=== PATIENT | female | born 1940 | race Caucasian/White ===

== ENCOUNTER 2017-06-18 11:01 | Inpatient (IN) ==
[2017-06-18] MEDS ORDERED: methylPREDNISolone SOD SUC 125 MG/2 ML VIAL IV STA (11:23)
[2017-06-18 11:30] LABS: Basophils # 0.1 10*3/uL (0.0-0.2); Basophils % 0.9 % (0.0-0.8); Eosinophils # 0.5 10*3/uL (0.0-0.87); Eosinophils % 9.1 % (0.00-10.9); Hematocrit 33.7 VOL% (35.7-47.0); Immature Granulocytes % 0.3 %; Immature Granulocytes Absolute 0.02 #; Lymphocytes # 1.4 10*3/uL (1.4-4.0); Lymphocytes % 23.2 % (21.3-54.2); Mean Corpuscular HGB Conc 32.6 GM/DL (32-36); Mean Corpuscular Hemoglobin 31 PG (27-34); Mean Corpuscular Volume 93.9 FL (87-102); Mean Platelet Volume 10.9 FL (9.6-12.0); Monocytes # 1.1 10*3/uL (0.11-0.8); Monocytes % 19.4 % (1.7-12.7); Neutrophils # 2.8 10*3/uL (1.4-7.4); Neutrophils % 47.1 % (38.7-73.9); Platelet Count 170 T/CUMM (130-400); Red Blood Count 3.59 MC/CUMM (3.8-5.5); Red Cell Distribution Width 13.3 % (9.3-17.3); White Blood Count 5.8 T/CUMM (4-12)
[2017-06-18] MEDS: ALBUTEROL 2.5 MG/3 ML NEB RESP TX SCH ×3 (11:35→11:54)
[2017-06-18 11:54] LABS: Alanine Aminotransferase 19 U/L (13-56); Albumin 3.2 G/DL (3.4-5.0); Alkaline Phosphatase 62 U/L (45-117); Aspartate Amino Transferase 16 U/L (0-37); Blood Urea Nitrogen 19 MG/DL (7-18); Calcium 9.5 MG/DL (8.5-10.1); Glucose 98 MG/DL (74-106); Osmolality,Calculated 280.4 MOS/KG (273-304); Potassium 3.8 MMOL/L (3.5-5.1); Sodium 140 MMOL/L (136-145); Total Protein 7.1 G/DL (6.4-8.3); Troponin I Only < 0.015 NG/ML (0.00-0.045)
[2017-06-18 12:42] LABS: Eosinophils 9 % (0-10); Hypochromasia 1+; Lymphocytes 29 % (20-55); Platelet Estimate Adequate; Segmented Neutrophils 47 % (50-85); Total Cells Counted 100
[2017-06-18] MEDS ORDERED: ONDANSETRON 4 MG/2 ML VIAL IV PRN (14:16)
[2017-06-18] MEDS ORDERED: MORPHINE 4 MG/1 ML VIAL IV PRN (14:16)
[2017-06-18] MEDS ORDERED: ACETAMINOPHEN 325 MG TABLET PO PRN (14:16)
[2017-06-18] MEDS ORDERED: ALBUTEROL 2.5 MG/3 ML NEB RESP TX PRN ×2 (14:22→14:31)
[2017-06-18] MEDS ORDERED: NITROGLYCERIN SL 0.4 MG TABLET SL PRN (14:31)
[2017-06-18] MEDS ORDERED: AMINOPHYLLINE 125 MG in SODIUM CHLORIDE 0.9% 100 ML IV ONE (15:21)
[2017-06-18] MEDS: LEVOFLOXACIN INJ 500 MG in PREMIX 1 EACH IV SCH (16:24)
[2017-06-18] MEDS: MONTELUKAST 10 MG TABLET PO SCH (16:28)
[2017-06-18] MEDS: ALBUTEROL/IPRATROPIUM 3 ML NEB RESP TX SCH (19:17)
[2017-06-18] MEDS: AMINOPHYLLINE 500 MG in SODIUM CHLORIDE 0.9% 480 ML IV SCH (20:21)
[2017-06-18] MEDS: CARVEDILOL 12.5 MG TABLET PO SCH (20:57)
[2017-06-18] MEDS: APIXABAN 5 MG TABLET PO SCH (20:57)
[2017-06-18] MEDS: ASCORBIC ACID 500 MG TABLET PO SCH (20:57)
[2017-06-19] MEDS: ALBUTEROL/IPRATROPIUM 3 ML NEB RESP TX SCH ×4 (00:19→20:39)
[2017-06-19] MEDS: methylPREDNISolone SOD SUC 40 MG/1 ML VIAL IV SCH ×3 (00:38→23:41)
[2017-06-19 06:52] LABS: Hematocrit 36.2 VOL% (35.7-47.0); Immature Granulocytes % 0.7 %; Immature Granulocytes Absolute 0.03 #; Lymphocytes # 0.7 10*3/uL (1.4-4.0); Lymphocytes % 16.7 % (21.3-54.2); Mean Corpuscular HGB Conc 33.1 GM/DL (32-36); Mean Corpuscular Hemoglobin 31 PG (27-34); Mean Corpuscular Volume 92.3 FL (87-102); Mean Platelet Volume 10.7 FL (9.6-12.0); Monocytes # 0.1 10*3/uL (0.11-0.8); Monocytes % 3.1 % (1.7-12.7); Neutrophils # 3.4 10*3/uL (1.4-7.4); Neutrophils % 79.5 % (38.7-73.9); Platelet Count 220 T/CUMM (130-400); Red Blood Count 3.92 MC/CUMM (3.8-5.5); Red Cell Distribution Width 13.2 % (9.3-17.3); White Blood Count 4.3 T/CUMM (4-12)
[2017-06-19 07:20] LABS: Alanine Aminotransferase 19 U/L (13-56); Albumin 3.3 G/DL (3.4-5.0); Alkaline Phosphatase 73 U/L (45-117); Aspartate Amino Transferase 13 U/L (0-37); Bilirubin,Total < 0.39 MG/DL (0.2-1.0); Blood Urea Nitrogen 25 MG/DL (7-18); Calcium 9.3 MG/DL (8.5-10.1); Cholesterol 232 MG/DL (50-200); Glucose 145 MG/DL (74-106); HDL Cholesterol 52 MG/DL (40-60); Osmolality,Calculated 285.4 MOS/KG (273-304); Potassium 3.8 MMOL/L (3.5-5.1); Risk Ratio 4.46; Sodium 140 MMOL/L (136-145); Thyroid Stimulating Hormone 0.412 uIU/ml (0.358-3.74); Total Protein 7.1 G/DL (6.4-8.3); Triglycerides 68 MG/DL (2-150); VLDL CHOLESTEROL 13.6 MG/DL
[2017-06-19 07:21] LABS: Band Neutrophils 4 % (0-10); Hypochromasia Slight; Lymphocytes 9 % (20-55); Platelet Estimate Adequate; Segmented Neutrophils 83 % (50-85); Total Cells Counted 100
[2017-06-19] MEDS: CETIRIZINE 10 MG TABLET PO SCH (08:59)
[2017-06-19] MEDS: PANTOPRAZOLE 40 MG TABLET PO SCH (08:59)
[2017-06-19] MEDS: ASPIRIN EC 81 MG TABLET PO SCH (08:59)
[2017-06-19] MEDS: SERTRALINE 50 MG TABLET PO SCH (08:59)
[2017-06-19] MEDS: CHOLECALCIFEROL 1,000 UNIT TABLET PO SCH (08:59)
[2017-06-19] MEDS: MONTELUKAST 10 MG TABLET PO SCH (08:59)
[2017-06-19] MEDS: CARVEDILOL 12.5 MG TABLET PO SCH ×2 (08:59→16:32)
[2017-06-19] MEDS: SPIRONOLACTONE 50 MG TABLET PO SCH (08:59)
[2017-06-19] MEDS: MULTIVITAMIN (CENTRUM) TABLET PO SCH (08:59)
[2017-06-19] MEDS: ASCORBIC ACID 500 MG TABLET PO SCH ×2 (08:59→21:31)
[2017-06-19] MEDS ORDERED: LOSARTAN 50 MG TABLET PO SCH (09:00)
[2017-06-19] MEDS: APIXABAN 5 MG TABLET PO SCH ×2 (09:00→21:32)
[2017-06-19] MEDS ORDERED: SODIUM CHLORIDE 0.45% 500 ML IV ONE (13:02)
[2017-06-19] MEDS: LEVOFLOXACIN INJ 500 MG in PREMIX 1 EACH IV SCH (16:32)
[2017-06-19] MEDS: AMINOPHYLLINE 500 MG in SODIUM CHLORIDE 0.9% 480 ML IV SCH (21:32)
[2017-06-19] MEDS ORDERED: ASPIRIN 325 MG TABLET ONE (22:18)
[2017-06-19] MEDS ORDERED: ASPIRIN 325 MG TABLET PO ONE (22:18)
[2017-06-19] MEDS ORDERED: METOPROLOL TARTRATE 5 MG/5 ML VIAL IV ONE (22:22)
[2017-06-19] MEDS ORDERED: IPRATROPIUM 500 MCG/2.5 ML NEB RESP TX ONE (22:24)
[2017-06-19] MEDS ORDERED: DILTIAZEM 30 MG TABLET PO ONE (22:26)
[2017-06-20 00:15] LABS: Potassium 4.3 MMOL/L (3.5-5.1)
[2017-06-20] MEDS: ALBUTEROL/IPRATROPIUM 3 ML NEB RESP TX SCH ×4 (00:16→19:27)
[2017-06-20] MEDS ORDERED: MAGNESIUM OXIDE 400 MG TABLET PO ONE (01:13)
[2017-06-20 05:27] LABS: Hematocrit 34.7 VOL% (35.7-47.0); Hemoglobin 11.4 GM/DL (12.0-16.0); Immature Granulocytes % 0.5 %; Immature Granulocytes Absolute 0.05 #; Lymphocytes # 0.6 10*3/uL (1.4-4.0); Lymphocytes % 6.1 % (21.3-54.2); Mean Corpuscular HGB Conc 32.9 GM/DL (32-36); Mean Corpuscular Hemoglobin 31 PG (27-34); Mean Corpuscular Volume 93.5 FL (87-102); Mean Platelet Volume 10.9 FL (9.6-12.0); Monocytes # 0.2 10*3/uL (0.11-0.8); Monocytes % 1.6 % (1.7-12.7); Neutrophils # 8.9 10*3/uL (1.4-7.4); Neutrophils % 91.8 % (38.7-73.9); Platelet Count 192 T/CUMM (130-400); Red Blood Count 3.71 MC/CUMM (3.8-5.5); Red Cell Distribution Width 13.3 % (9.3-17.3); White Blood Count 9.7 T/CUMM (4-12)
[2017-06-20 05:51] LABS: Giant Platelets Few; Hypochromasia 1+; Lymphocytes 5 % (20-55); Platelet Estimate Adequate; Segmented Neutrophils 91 % (50-85); Total Cells Counted 100
[2017-06-20 05:55] LABS: Calcium 9.3 MG/DL (8.5-10.1); Potassium 4.7 MMOL/L (3.5-5.1)
[2017-06-20] MEDS: ASCORBIC ACID 500 MG TABLET PO SCH ×2 (08:33→20:39)
[2017-06-20] MEDS: MULTIVITAMIN (CENTRUM) TABLET PO SCH (08:33)
[2017-06-20] MEDS: PANTOPRAZOLE 40 MG TABLET PO SCH (08:33)
[2017-06-20] MEDS: CHOLECALCIFEROL 1,000 UNIT TABLET PO SCH (08:33)
[2017-06-20] MEDS: MONTELUKAST 10 MG TABLET PO SCH (08:33)
[2017-06-20] MEDS: SPIRONOLACTONE 50 MG TABLET PO SCH (08:34)
[2017-06-20] MEDS: SERTRALINE 50 MG TABLET PO SCH (08:34)
[2017-06-20] MEDS: CARVEDILOL 12.5 MG TABLET PO SCH (08:34)
[2017-06-20] MEDS: APIXABAN 5 MG TABLET PO SCH ×2 (08:34→20:40)
[2017-06-20] MEDS: ASPIRIN EC 81 MG TABLET PO SCH (08:34)
[2017-06-20] MEDS: CETIRIZINE 10 MG TABLET PO SCH (09:13)
[2017-06-20] MEDS: methylPREDNISolone SOD SUC 40 MG/1 ML VIAL IV SCH ×2 (13:03→23:54)
[2017-06-20] MEDS: LEVOFLOXACIN INJ 500 MG in PREMIX 1 EACH IV SCH (17:11)
[2017-06-20] MEDS ORDERED: AMINOPHYLLINE 250 MG in SODIUM CHLORIDE 0.9% 240 ML IV SCH (20:00)
[2017-06-20] MEDS: METOPROLOL SUCCINATE XL 25 MG TABLET PO SCH (20:39)
[2017-06-21] MEDS: ALBUTEROL/IPRATROPIUM 3 ML NEB RESP TX SCH ×4 (01:29→19:14)
[2017-06-21 08:00] LABS: Calcium 9.3 MG/DL (8.5-10.1); Osmolality,Calculated 290.3 MOS/KG (273-304); Potassium 4.6 MMOL/L (3.5-5.1)
[2017-06-21] MEDS: ASPIRIN EC 81 MG TABLET PO SCH (08:10)
[2017-06-21] MEDS: CETIRIZINE 10 MG TABLET PO SCH (08:10)
[2017-06-21] MEDS: MULTIVITAMIN (CENTRUM) TABLET PO SCH (08:10)
[2017-06-21] MEDS: APIXABAN 5 MG TABLET PO SCH ×2 (08:10→20:13)
[2017-06-21] MEDS: MONTELUKAST 10 MG TABLET PO SCH ×2 (08:10→20:14)
[2017-06-21] MEDS: SERTRALINE 50 MG TABLET PO SCH (08:10)
[2017-06-21] MEDS: PANTOPRAZOLE 40 MG TABLET PO SCH (08:10)
[2017-06-21] MEDS: ASCORBIC ACID 500 MG TABLET PO SCH ×2 (08:10→20:13)
[2017-06-21] MEDS: SPIRONOLACTONE 50 MG TABLET PO SCH (08:10)
[2017-06-21] MEDS: METOPROLOL SUCCINATE XL 25 MG TABLET PO SCH ×2 (08:10→20:13)
[2017-06-21] MEDS: CHOLECALCIFEROL 1,000 UNIT TABLET PO SCH (08:10)
[2017-06-21] MEDS: ALBUTEROL 2 MG TABLET PO SCH ×3 (13:17→21:10)
[2017-06-21] MEDS: methylPREDNISolone SOD SUC 40 MG/1 ML VIAL IV SCH ×2 (13:18→23:45)
[2017-06-21] MEDS: guaiFENesin 200 MG/10 ML UDCUP PO PRN ×2 (13:24→20:14)
[2017-06-21] MEDS: LEVOFLOXACIN INJ 250 MG in PREMIX 1 EACH IV SCH (16:50)
[2017-06-22] MEDS: ALBUTEROL/IPRATROPIUM 3 ML NEB RESP TX SCH ×4 (00:49→18:58)
[2017-06-22] MEDS: ALBUTEROL 2 MG TABLET PO SCH ×3 (05:40→21:01)
[2017-06-22 05:44] LABS: Basophils % 0.1 % (0.0-0.8); Hematocrit 34.2 VOL% (35.7-47.0); Hemoglobin 11.6 GM/DL (12.0-16.0); Immature Granulocytes % 2.4 %; Immature Granulocytes Absolute 0.21 #; Lymphocytes # 0.5 10*3/uL (1.4-4.0); Lymphocytes % 5.5 % (21.3-54.2); Mean Corpuscular HGB Conc 33.9 GM/DL (32-36); Mean Corpuscular Hemoglobin 31 PG (27-34); Mean Corpuscular Volume 91.4 FL (87-102); Mean Platelet Volume 11.3 FL (9.6-12.0); Monocytes # 0.2 10*3/uL (0.11-0.8); Monocytes % 1.7 % (1.7-12.7); Neutrophils % 90.3 % (38.7-73.9); Platelet Count 204 T/CUMM (130-400); Red Blood Count 3.74 MC/CUMM (3.8-5.5); Red Cell Distribution Width 13.3 % (9.3-17.3); White Blood Count 8.9 T/CUMM (4-12)
[2017-06-22 06:17] LABS: Calcium 9.3 MG/DL (8.5-10.1); Osmolality,Calculated 292.1 MOS/KG (273-304); Potassium 4.6 MMOL/L (3.5-5.1)
[2017-06-22] MEDS: CETIRIZINE 10 MG TABLET PO SCH (09:20)
[2017-06-22] MEDS: ASCORBIC ACID 500 MG TABLET PO SCH ×2 (09:20→21:00)
[2017-06-22] MEDS: SERTRALINE 50 MG TABLET PO SCH (09:20)
[2017-06-22] MEDS: MONTELUKAST 10 MG TABLET PO SCH ×2 (09:20→21:00)
[2017-06-22] MEDS: MULTIVITAMIN (CENTRUM) TABLET PO SCH (09:20)
[2017-06-22] MEDS: ASPIRIN EC 81 MG TABLET PO SCH (09:20)
[2017-06-22] MEDS: METOPROLOL SUCCINATE XL 25 MG TABLET PO SCH ×2 (09:21→21:00)
[2017-06-22] MEDS: CHOLECALCIFEROL 1,000 UNIT TABLET PO SCH (09:21)
[2017-06-22] MEDS: SPIRONOLACTONE 50 MG TABLET PO SCH (09:21)
[2017-06-22] MEDS: PANTOPRAZOLE 40 MG TABLET PO SCH (09:21)
[2017-06-22] MEDS: APIXABAN 5 MG TABLET PO SCH ×2 (09:21→21:00)
[2017-06-22] MEDS: methylPREDNISolone SOD SUC 40 MG/1 ML VIAL IV SCH ×2 (11:52→23:47)
[2017-06-22] MEDS: LEVOFLOXACIN INJ 250 MG in PREMIX 1 EACH IV SCH (15:11)
[2017-06-22] MEDS: BUDESONIDE/FORMOTEROL 160-4.5 INHALER 6 GM INH SCH ×2 (15:12→21:03)
[2017-06-23] MEDS: ALBUTEROL/IPRATROPIUM 3 ML NEB RESP TX SCH ×4 (00:17→19:31)
[2017-06-23] MEDS: ALBUTEROL 2 MG TABLET PO SCH ×3 (06:13→21:07)
[2017-06-23] MEDS: METOPROLOL SUCCINATE XL 25 MG TABLET PO SCH ×2 (09:21→21:10)
[2017-06-23] MEDS: SERTRALINE 50 MG TABLET PO SCH (09:21)
[2017-06-23] MEDS: CHOLECALCIFEROL 1,000 UNIT TABLET PO SCH (09:21)
[2017-06-23] MEDS: PANTOPRAZOLE 40 MG TABLET PO SCH (09:21)
[2017-06-23] MEDS: ASPIRIN EC 81 MG TABLET PO SCH (09:21)
[2017-06-23] MEDS: MULTIVITAMIN (CENTRUM) TABLET PO SCH (09:22)
[2017-06-23] MEDS: SPIRONOLACTONE 50 MG TABLET PO SCH (09:22)
[2017-06-23] MEDS: APIXABAN 5 MG TABLET PO SCH ×2 (09:22→21:08)
[2017-06-23] MEDS: ASCORBIC ACID 500 MG TABLET PO SCH ×2 (09:22→21:07)
[2017-06-23] MEDS: CETIRIZINE 10 MG TABLET PO SCH (09:22)
[2017-06-23] MEDS: MONTELUKAST 10 MG TABLET PO SCH ×2 (09:22→21:08)
[2017-06-23] MEDS: BUDESONIDE/FORMOTEROL 160-4.5 INHALER 6 GM INH SCH ×2 (09:22→21:09)
[2017-06-23] MEDS: methylPREDNISolone SOD SUC 40 MG/1 ML VIAL IV SCH (13:07)
[2017-06-23] MEDS: LEVOFLOXACIN INJ 250 MG in PREMIX 1 EACH IV SCH (15:54)
[2017-06-24] MEDS: ALBUTEROL/IPRATROPIUM 3 ML NEB RESP TX SCH ×2 (00:23→07:25)
[2017-06-24] MEDS: methylPREDNISolone SOD SUC 40 MG/1 ML VIAL IV SCH (01:10)
[2017-06-24] MEDS: ALBUTEROL 2 MG TABLET PO SCH (06:44)
[2017-06-24 07:29] VITALS: BP 134/65
[2017-06-24] MEDS: CHOLECALCIFEROL 1,000 UNIT TABLET PO SCH (09:37)
[2017-06-24] MEDS: MONTELUKAST 10 MG TABLET PO SCH (09:37)
[2017-06-24] MEDS: SPIRONOLACTONE 50 MG TABLET PO SCH (09:38)
[2017-06-24] MEDS: SERTRALINE 50 MG TABLET PO SCH (09:38)
[2017-06-24] MEDS: METOPROLOL SUCCINATE XL 25 MG TABLET PO SCH (09:38)
[2017-06-24] MEDS: PANTOPRAZOLE 40 MG TABLET PO SCH (09:38)
[2017-06-24] MEDS: APIXABAN 5 MG TABLET PO SCH (09:38)
[2017-06-24] MEDS: ASPIRIN EC 81 MG TABLET PO SCH (09:38)
[2017-06-24] MEDS: BUDESONIDE/FORMOTEROL 160-4.5 INHALER 6 GM INH SCH (09:38)
[2017-06-24] MEDS: CETIRIZINE 10 MG TABLET PO SCH (09:38)
[2017-06-24] MEDS: MULTIVITAMIN (CENTRUM) TABLET PO SCH (09:38)
[2017-06-24] MEDS: ASCORBIC ACID 500 MG TABLET PO SCH (09:38)
== END 2017-06-24 12:00 | disposition home or self-care (01) | DRG 202 ==
LOC: N.ED 11:01 → N.EDINP 13:21 → SUATTDRO 13:21 → N.5E 14:30
PROVIDERS: ADMIT Internal Medicine; ATTEND Internal Medicine Cardiovascular Disease